=== PATIENT | male | born 1995 | race Two or more races ===

== ENCOUNTER 2021-06-26 22:40 | Emergency (ER) | payer OTHER ==
[~2021-06-26] VITALS: Ht 182.9 cm; Wt 100.0 kg
[2021-06-27 00:05] VITALS: BP 138/91
== END 2021-06-27 00:42 | disposition home or self-care (01) ==
LOC: EMS 22:46
DX: Z02.89 Encounter for other administrative examinations (principal); I10 Essential (primary) hypertension
CPT/HCPCS: 99283